=== PATIENT | female | born 1955 | race Caucasian/White ===

== ENCOUNTER 2021-07-31 07:13 | Inpatient (IN) | payer MEDICARE ==
[~2021-07-31] VITALS: Ht 162.6 cm; Wt 59.4 kg
--- NOTE | ~2021-07-31 | EMS ---
[address] [address] EMS Patient Care Report Name: RADHA KHAN Room: [place] [address] [place] [facility] [id number] Admission: 07/31/21 Attend Phys: Katey Chaudhry Discharge: Date of : 55 Report #: [id number] THIS REPORT FOR: //name// Report Transmitted: 07/31/2021 09:06 EMS Care Summary [facility] [place] Incident [id number] @ 07/31/2021 06:29 Incident Location [address] [place] [id number] Patient Radha Khan Female, 65 Years 1955 Patient Address [address] [place], [place] [id number] Patient History Cerebral infarction, unspecified,Myocardial Infarction (NE), Patient Allergies No known allergies, Chief Complaint Lethargy Disposition Transported No Lights/[place] Dispatch Reason Unknown Problem/Person Down Transported To [facility] Narrative Dispatched to a hotel for chest pain. The patient states that when she woke up, she started to experience substernal chest pain, nausea, diarrhea, chills and body aches. She denies shortness of breath, headache, dizziness, fever, cough, vomiting, recent illness and recent trauma. The patient has a history of NE's so she was concerned that she was having another. She described her chest pain as dull and states that it does not radiate. The patient states that she is [facility] [address] [place] [address] EMS Patient Care Report Name: RADHA KHAN Room: [place] [address] ADM [place] [facility]#: [id number] Admission: 07/31/21 Attend Phys: Katey Chaudhry Discharge: Date of : 55 Report #: [id number] compliant with her medication. Due to a previous stroke, the patient states that she is "barely ambulatory." The patient was laying down on arrival, alert and oriented. She had slurred speech from her previous stroke. She spoke in full sentences. Skin was warm, dry and pink. The patient was given Aspirin and was instructed to chew them. A 12 lead was preformed on scene. The patient was lifted to the cot without incident. She winced whenever she was manipulated. She was moved into the ambulance without incident. An IV was placed and a blood sugar was obtained. The patient was transported, removed from the ambulance and moved to ER 11 without incident. She was transported with one purse that remained with her throughout service. Reports given to nursing staff. End of service. Initial Vitals @06:40SpO2: 96, @06:48SpO2: 98, @06:49SpO2: 97, @06:53SpO2: 97, @06:58SpO2: 98, @06:37 @06:41 @06:49 @06:40P: 109,R: 16,BP: 193/101, @06:49P: 90,R: 16,BP: 162/84, @06:40GCS: 15, @06:49GCS: 15, @06:37Glucose: 137, Assessments @06:37MENTAL:SKIN:HEENT:LUNG SOUNDS:ABDOMEN:PELVIS//GI:EXTREMITIES:PULSE:NEURO: Impression Influenza Procedures @06:37Aspirin - 324.000 Milligrams (mg) - OralResponse: Unchanged@06:37 cc () Site: Antecubital-LeftResponse: UnchangedSucceeded@06:3712-Lead ECGResponse: UnchangedSucceeded@06:4112-Lead ECGResponse: UnchangedSucceeded@06:4912-Lead ECGResponse: UnchangedSucceeded Timeline 06:29,Call Received 06:29,Dispatch Notified 06:29,Psap Call 06:29,Dispatched 06:29,[place] [address] EMS Patient Care Report Name: RADHA KHAN Room: [place] [address] ADM [facility]#: [id number] Admission: 07/31/21 Attend Phys: Katey Chaudhry Discharge: Date of : 55 Report #: [id number] 06:36,On Scene 06:37,At Patient 06:37,Aspirin - 324.000 Milligrams (mg) - Oral,Response: Unchanged 06:37, cc Site: Antecubital-Left,Response: UnchangedSucceeded, 06:37,12-Lead ECG,Response: UnchangedSucceeded, 06:37,BP: / M,PULSE: ,RR: R,SPO2: Ox,ETCO2: ,BG: ,PAIN: ,GCS: , 06:37,BP: / M,PULSE: ,RR: R,SPO2: Ox,ETCO2: ,B,PAIN: ,GCS: , 06:40,BP: / M,PULSE: ,RR: R,SPO2: 96 Ox,ETCO2: ,BG: ,PAIN: ,GCS: , 06:40,BP: 193/101 M,PULSE: 109,RR: 16 R,SPO2: Ox,ETCO2: ,BG: ,PAIN: ,GCS: , 06:40,BP: / M,PULSE: ,RR: R,SPO2: Ox,ETCO2: ,BG: ,PAIN: ,GCS: 15, 06:41,12-Lead ECG,Response: UnchangedSucceeded, 06:41,BP: / M,PULSE: ,RR: R,SPO2: Ox,ETCO2: ,BG: ,PAIN: ,GCS: , 06:48,BP: / M,PULSE: ,RR: R,SPO2: 98 Ox,ETCO2: ,BG: ,PAIN: ,GCS: , 06:49,12-Lead ECG,Response: UnchangedSucceeded, 06:49,BP: / M,PULSE: ,RR: R,SPO2: 97 Ox,ETCO2: ,BG: ,PAIN: ,GCS: , 06:49,BP: / M,PULSE: ,RR: R,SPO2: Ox,ETCO2: ,BG: ,PAIN: ,GCS: , 06:49,BP: 162/84 M,PULSE: 90,RR: 16 R,SPO2: Ox,ETCO2: ,BG: ,PAIN: ,GCS: , 06:49,BP: / M,PULSE: ,RR: R,SPO2: Ox,ETCO2: ,BG: ,PAIN: ,GCS: 15, 06:53,BP: / M,PULSE: ,RR: R,SPO2: 97 Ox,ETCO2: ,BG: ,PAIN: ,GCS: , 06:54,Depart Scene 06:58,BP: / M,PULSE: ,RR: R,SPO2: 98 Ox,ETCO2: ,BG: ,PAIN: ,GCS: , 07:06,At Destination 07:20,Call Closed Disclaimer v1.1 Copyright [address] [employer] This EMS Care Summary contains data elements from the applicable legal record (which may be displayed differently). It is designed to provide pertinent information for the following purposes: continuity of care, clinical quality, and state data reporting. The complete legal record is available to ED staff and administrators of the receiving hospital in [employer] Patient Tracker. All data is provided "as is."
[2021-07-31 07:26] VITALS: BP 166/89
[2021-07-31 08:13] LABS: URINE BILIRUBIN NEGATIVE (Negative); URINE BLOOD NEGATIVE (Negative); URINE CLARITY CLEAR; URINE COLOR YELLOW; URINE GLUCOSE-RANDOM NEGATIVE (Negative); URINE KETONES NEGATIVE (Negative); URINE LEUKOCYTES-REFLEX 1+ (Negative); URINE PROTEIN NEGATIVE (Negative); URINE SPECIFIC GRAVITY 1.015 (1.005-1.030); URINE UROBILINOGEN 0.2 E.U./dl (0.2-1.0)
[2021-07-31 08:16] LABS: ABSOLUTE BASOPHILS 0.1 thou/uL (0.0-0.2); ABSOLUTE LYMPHOCYTES 1.4 thou/uL (0.8-5.3); ABSOLUTE MONOCYTES 0.5 thou/uL (0.0-1.2); ABSOLUTE NEUTROPHILS 6.1 thou/uL (1.6-8.1); BASOPHILS 0.6 %; EOSINOPHILS 0.3 %; HEMATOCRIT 31.4 % (37.0-47.0); LYMPHOCYTES 17.3 %; MCH 29.4 pg (26.0-34.0); MCHC 34.9 g/dL (28.0-37.0); MCV 84.4 fL (80.0-100.0); MONOCYTES 6.3 %; MPV 7.1 fl. (7.2-11.1); NUCLEATED RBCS 0 /100WBC; PLATELET COUNT* 339 thou/uL (150-400); POLYS 75.5 %; RBC 3.72 mil/uL (4.20-5.00); RDW-CV 14.3 % (10.5-14.5); WBC 8.1 thou/uL (4.0-11.0)
[2021-07-31 08:22] LABS: CREATININE 0.8 mg/dL (0.6-1.3); POTASSIUM 3.2 mmol/L (3.5-5.1)
[2021-07-31 08:30] LABS: URINE NITRITE-REFLEX POSITIVE (Negative)
[2021-07-31 08:31] LABS: BACTERIA-REFLEX >30 Many /HPF (None Seen); CASTS None Seen /LPF (None Seen); CRYSTALS None Seen /LPF (None Seen); SQUAMOUS 0-3 Few /LPF (0-3); TRANSITIONAL EPITHEL CELL 0-3 Few /LPF (None Seen); URINE RBC 0-2 Rare /HPF (0-2); URINE WBC-REFLEX 0-5 Rare /HPF (0-5)
[2021-07-31 08:32] LABS: ALBUMIN 4.1 g/dL (3.4-5.0); MAGNESIUM 1.7 mg/dL (1.8-2.4); TOTAL BILIRUBIN 0.6 mg/dL (<0.1-1.0); TOTAL PROTEIN 7.8 g/dL (6.4-8.2)
[2021-07-31 10:28] VITALS: BP 151/80
[2021-07-31 11:20] VITALS: BP 152/75
[2021-07-31] MEDS ORDERED: LIPITOR40 MG PO (15:41)
[2021-07-31] MEDS ORDERED: REMERON30 MG PO (15:55)
[2021-07-31] MEDS ORDERED: BACLOFEN 10MG T10 MG PO (15:56)
[2021-07-31] MEDS ORDERED: ASA81BEC PO (15:57)
[2021-07-31] MEDS ORDERED: NORVASC10 MG PO (15:58)
[2021-07-31] MEDS ORDERED: JANTOVEN4 MG PO (15:59)
[2021-07-31] MEDS ORDERED: LISINOPRIL20 MG PO (16:00)
[2021-07-31] MEDS ORDERED: CARVEDILOL3.125 MG PO (16:02)
[2021-07-31 17:55] VITALS: BP 158/80
[2021-07-31 20:13] LABS: INR 1.1; PROTIME 11.2 Seconds (9.20-11.50)
[2021-07-31 22:39] VITALS: BP 160/70
[2021-08-01 00:45] VITALS: BP 181/63
[2021-08-01 08:01] VITALS: BP 151/67
[2021-08-01 09:24] LABS: ABSOLUTE BASOPHILS 0.1 thou/uL (0.0-0.2); ABSOLUTE EOSINOPHILS 0.1 thou/uL (0.0-0.7); ABSOLUTE LYMPHOCYTES 2.3 thou/uL (0.8-5.3); ABSOLUTE MONOCYTES 0.5 thou/uL (0.0-1.2); ABSOLUTE NEUTROPHILS 4.4 thou/uL (1.6-8.1); BASOPHILS 1.1 %; EOSINOPHILS 1.6 %; HEMATOCRIT 34.1 % (37.0-47.0); HEMOGLOBIN 11.4 gm/dL (12.0-15.0); LYMPHOCYTES 31.5 %; MCH 28.9 pg (26.0-34.0); MCHC 33.5 g/dL (28.0-37.0); MCV 86.2 fL (80.0-100.0); MONOCYTES 6.3 %; MPV 6.9 fl. (7.2-11.1); NUCLEATED RBCS 0 /100WBC; PLATELET COUNT* 325 thou/uL (150-400); POLYS 59.5 %; RBC 3.96 mil/uL (4.20-5.00); RDW-CV 14.3 % (10.5-14.5); WBC 7.4 thou/uL (4.0-11.0)
[2021-08-01 09:29] LABS: CALCIUM 9.2 mg/dL (8.5-10.1); CREATININE 0.9 mg/dL (0.6-1.3); MAGNESIUM 1.9 mg/dL (1.8-2.4); POTASSIUM 3.8 mmol/L (3.5-5.1)
--- NOTE | 2021-08-01 11:42 | EKG ---
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
[2021-08-01 11:50] VITALS: BP 121/49
--- NOTE | 2021-08-01 17:26 | 2DMMODE ---
[place] [address] 2 D/M-MODE ECHOCARDIOGRAM Name: RADHA KHAN Room: [address] IN [place]#: [id number] Admission: 07/31/21 Attend Phys: Uli So Discharge: Date of : 55 Date of Service: 08/01/21 1726 Report #: [id number] THIS REPORT FOR: cc: FAM - No family physician/PCP FAM - No family physician/PCP Winston Nguyen MD [facility] ~ APPROVED REPORT Study performed: 08/01/2021 15:59:47 EXAM: Comprehensive 2D, Doppler, and color-flow Echocardiogram Patient Location: In-Patient Room #: 228 Status: routine BSA: 1.63 HR: 66 bpm BP: 151/67 mmHg Rhythm: NSR Other Information Study Quality: Good Indications Chest Pain 2D Dimensions IVSd: 10.84 (7-11mm) LVOT Diam: 19.97 (18-24mm) LVDd: 47.73 mm PWd: 9.12 (7-11mm) Ascending Ao: 32.08 (22-36mm) LVDs: 29.35 (25-40mm) Aortic Root: 31.96 mm Volumes Left Atrial Volume (Systole) LA ESV Index: 41.00 mL/m2 Aortic Valve AoV Peak Jimbo.: 1.50 m/s AO Peak Gr.: 9.04 mmHg LVOT Max P.61 mmHg AO Mean Gr.: 5.46 mmHg LVOT Mean P.84 mmHg LVOT Max V: 0.95 m/s AO V2 VTI: 33.99 cm LVOT Mean V: 0.63 m/s NAMAN (VTI): 2.11 cm2 LVOT V1 VTI: 22.94 [place] [address] 2 D/M-MODE ECHOCARDIOGRAM Name: RADHA KHAN Room: [address] IN [facility]#: [id number] Admission: 07/31/21 Attend Phys: Uli So Discharge: Date of : 55 Date of Service: 08/01/21 1726 Report #: [id number] Mitral Valve E/A Ratio: 0.87 MV Decel. Time: 267.43 ms MV E Max Jimbo.: 1.03 m/s MV PHT: 77.55 ms MVA (PHT): 2.84 cm2 TDI E/Lateral E': 14.71 E/Medial E': 17.17 Medial E' Jimbo.: 0.06 m/s Lateral E' Jimbo.: 0.07 m/s Pulmonary Valve PV Peak Jimbo.: 0.86 m/s PV Peak Gr.: 2.95 mmHg Tricuspid Valve RAP Estimate: 5.00 mmHg TR Peak Gr.: 20.90 mmHg RVSP: 25.00 mmHg PA Pressure: 25.00 mmHg Left Ventricle The left ventricle is normal size. There is normal LV segmental wall motion. There is normal left ventricular wall thickness. Left ventricular systolic function is normal. The left ventricular ejection fraction is within the normal range. LVEF is 55-60%. Grade I - abnormal relaxation pattern. Right Ventricle The right ventricle is normal size. The right ventricular systolic function is normal. Atria Left atrium is moderately dilated. The right atrium size is normal. Aortic Valve Mild aortic valve sclerosis. No aortic regurgitation is present. There is no aortic valvular stenosis. Mitral Valve There is mitral annular calcification. Trace mitral regurgitation. No evidence of mitral valve stenosis. Tricuspid Valve The tricuspid valve is normal in structure. Trace tricuspid regurgitation. [place] [address] 2 D/M-MODE ECHOCARDIOGRAM Name: RADHA KHAN Room: [address] IN [facility]#: [id number] Admission: 07/31/21 Attend Phys: Uli So Discharge: Date of : 55 Date of Service: 08/01/21 1726 Report #: [id number] Pulmonic Valve The pulmonary valve is normal in structure. There is no pulmonic valvular regurgitation. Great Vessels The aortic root is normal in size. IVC is normal in size and collapses >50% with inspiration. Pericardium There is no pericardial effusion. <Conclusion> The left ventricle is normal size. There is normal left ventricular wall thickness. Left ventricular systolic function is normal. The left ventricular ejection fraction is within the normal range. LVEF is 55-60%. Grade I - abnormal relaxation pattern. The right ventricle is normal size. Left atrium is moderately dilated. Mild aortic valve sclerosis. No aortic regurgitation is present. There is no aortic valvular stenosis. There is mitral annular calcification. Trace mitral regurgitation. No evidence of mitral valve stenosis. The tricuspid valve is normal in structure. IVC is normal in size and collapses >50% with inspiration. There is no pericardial effusion. There is normal LV segmental wall motion. <ELECTRONICALLY SIGNED> By: Winston Nguyen MD, FACC 08/01/211725 25 25 Winston Nguyen MD, FACC /INF
[2021-08-01 18:00] VITALS: BP 144/35
[2021-08-01 20:30] VITALS: BP 140/61
[2021-08-02] VITALS (7 sets, daily range): BP systolic 91–148; BP diastolic 32–108
[2021-08-02 04:24] LABS: HEMATOCRIT 31.1 % (37.0-47.0); HEMOGLOBIN 10.6 gm/dL (12.0-15.0); MCH 29.3 pg (26.0-34.0); MCV 86.1 fL (80.0-100.0); MPV 7.3 fl. (7.2-11.1); RBC 3.62 mil/uL (4.20-5.00); RDW-CV 14.4 % (10.5-14.5); WBC 7.3 thou/uL (4.0-11.0)
[2021-08-02 04:27] LABS: PROTIME 11.1 Seconds (9.20-11.50)
[2021-08-02 04:47] LABS: ALBUMIN 3.6 g/dL (3.4-5.0); CALCIUM 8.9 mg/dL (8.5-10.1); CREATININE 1.2 mg/dL (0.6-1.3); POTASSIUM 3.9 mmol/L (3.5-5.1); TOTAL BILIRUBIN 0.5 mg/dL (<0.1-1.0); TOTAL PROTEIN 7.1 g/dL (6.4-8.2)
[2021-08-03 03:46] VITALS: BP 133/83
[2021-08-03 04:47] LABS: INR 1.2; PROTIME 12.4 Seconds (9.20-11.50)
[2021-08-03 08:00] VITALS: BP 192/76
[2021-08-03 12:00] VITALS: BP 138/63
[2021-08-03 16:00] VITALS: BP 146/64
[2021-08-03 20:00] VITALS: BP 129/54
[2021-08-04] VITALS: BP 142/55
[2021-08-04 04:07] VITALS: BP 111/63
[2021-08-04 07:59] LABS: INR 1.2; PROTIME 12.6 Seconds (9.20-11.50)
[2021-08-04 08:00] VITALS: BP 135/61
[2021-08-04 12:00] VITALS: BP 134/50
[2021-08-04 16:00] VITALS: BP 174/71
[2021-08-04] MEDS ORDERED: MACROBID 100 M100 M1 PO (16:10)
== END 2021-08-04 17:52 | DRG 690 ==
LOC: M.ERS 07:13 → M.TBA-ER 08:46 → M.2W 08:46
PROVIDERS: Emergency Medicine Emergency Medical Services; Family Medicine; Internal Medicine; ADMIT Internal Medicine; ATTEND Internal Medicine
DX: N39.0 Urinary tract infection, site not specified (principal); I69.351 Hemiplegia and hemiparesis following cerebral infarction affecting right dominant side; R07.89 Other chest pain; Z20.822 Contact with and (suspected) exposure to COVID-19; E87.6 Hypokalemia; E83.42 Hypomagnesemia; I10 Essential (primary) hypertension; B96.89 Other specified bacterial agents as the cause of diseases classified elsewhere